=== PATIENT | male | born 1980 | race Caucasian/White ===

== ENCOUNTER 2018-06-01 06:47 | Emergency (ER) | payer OTHER ==
[~2018-06-01] VITALS: Ht 182.9 cm; Wt 95.3 kg
[2018-06-01 06:52] VITALS: BP 159/90
[2018-06-01] MEDS ORDERED: KEFLEX500 MG PO (07:12)
[2018-06-01] MEDS ORDERED: PREDNISONE10 MG PO (18:19)
[2018-06-01] MEDS ORDERED: BENADRYL50 MG PO (18:19)
[2018-06-01] MEDS ORDERED: EPIPEN ADU0.3 MG/0.3 IM (18:21)
== END 2018-06-01 07:54 | disposition home or self-care (01) ==
LOC: EME 06:47
DX: S80.861A Insect bite (nonvenomous), right lower leg, initial encounter (principal); W57.XXXA Bitten or stung by nonvenomous insect and other nonvenomous arthropods, initial encounter; Y93.H9 Activity, other involving exterior property and land maintenance, building and construction; Y92.096 Garden or yard of other non-institutional residence as the place of occurrence of the external cause; L03.115 Cellulitis of right lower limb
CPT/HCPCS: 99281; 99284; J0696

== ENCOUNTER 2018-06-01 17:38 | Emergency (ER) | payer OTHER ==
[~2018-06-01] VITALS: Ht 182.9 cm; Wt 94.3 kg
[~2018-06-01 17:38] MED LIST: KEFLEX500 MG PO
[2018-06-01] MEDS ORDERED: BENADRYL50 MG PO (18:19)
[2018-06-01] MEDS ORDERED: PREDNISONE10 MG PO (18:19)
[2018-06-01] MEDS ORDERED: EPIPEN ADU0.3 MG/0.3 IM (18:21)
[2018-06-01 18:48] VITALS: BP 139/108
== END 2018-06-01 18:48 | disposition home or self-care (01) ==
LOC: EME 17:38
DX: T63.441A Toxic effect of venom of bees, accidental (unintentional), initial encounter (principal); W57.XXXA Bitten or stung by nonvenomous insect and other nonvenomous arthropods, initial encounter; I10 Essential (primary) hypertension
CPT/HCPCS: 99281; 99284; J7512